=== PATIENT | male | born 1975 | race Caucasian/White ===

== ENCOUNTER 2020-11-29 22:10 | Emergency (ER) | payer OTHER ==
[~2020-11-29] VITALS: Ht 185.4 cm; Wt 83.9 kg
[~2020-11-29 22:10] MED LIST: CEPH500 PO; CYCL10 PO; DIAZ5 PO; HYDACE5 PO; HYDACE5325 PO; IBUP800 PO; NAPR500 PO; Norco 5-325 Ta1 EACH PO; OXYACE5T PO; RXCYCL10 PO; RXHYDACE PO; RXIBUP800 PO; TRAM50 PO
[2020-11-29] MEDS ORDERED: CEPH500 PO (23:14)
== END 2020-11-29 23:36 | disposition home or self-care (01) ==
LOC: ER 22:10
DX: S21.112A Laceration without foreign body of left front wall of thorax without penetration into thoracic cavity, initial encounter (principal); S01.112A Laceration without foreign body of left eyelid and periocular area, initial encounter; F41.9 Anxiety disorder, unspecified; F17.200 Nicotine dependence, unspecified, uncomplicated; X99.9XXA Assault by unspecified sharp object, initial encounter
CPT/HCPCS: 12001; 12013; 36415; 71250; 96374-59; 99284-25; A9270; J1170; J1885